=== PATIENT | female | born 1990 | race Caucasian/White ===

== ENCOUNTER 2020-09-22 05:46 | Inpatient (IN) | payer OTHER ==
[~2020-09-22] VITALS: Ht 160 cm; Wt 70.3 kg
[2020-09-22 07:35] LABS: RED BLOOD COUNT 3.92 M/UL (4.00-5.10); WHITE BLOOD COUNT 5.8 K/UL (4.5-11.0)
[2020-09-22] MEDS ORDERED: PRILOSEC OTC20 MG PO (08:20)
[2020-09-22] MEDS ORDERED: SUBOXONE 8 MG-1 EACH SL (08:20)
[2020-09-22] MEDS ORDERED: BUPRENORPHIN-N1 EACH SL (13:23)
[2020-09-22] MEDS ORDERED: IBUPROFEN800 MG PO (13:23)
[2020-09-22] MEDS ORDERED: DOCUSATE SODIU100 MG PO (13:23)
[2020-09-22] MEDS ORDERED: TYLENOL 500 MG500 MG PO (13:23)
[2020-09-23 06:03] LABS: HEMOGLOBIN 11.2 gm/dl (12.3-15.3)
== END 2020-09-24 13:00 | disposition home or self-care (01) | DRG 806 ==
LOC: OB 05:46
PROVIDERS: Obstetrics & Gynecology; ADMIT Obstetrics & Gynecology
PROC: 10E0XZZ Delivery of Products of Conception, External Approach (ICD-10-PCS; principal; 2020-09-22)
PROC: 0KQM0ZZ Repair Perineum Muscle, Open Approach (ICD-10-PCS; 2020-09-22)
PROC: 10907ZC Drainage of Amniotic Fluid, Therapeutic from Products of Conception, Via Natural or Artificial Opening (ICD-10-PCS; 2020-09-22)
PROC: 3E033VJ Introduction of Other Hormone into Peripheral Vein, Percutaneous Approach (ICD-10-PCS; 2020-09-22)
PROC: 3E0234Z Introduction of Serum, Toxoid and Vaccine into Muscle, Percutaneous Approach (ICD-10-PCS; 2020-09-22)
PROC: 10H07YZ Insertion of Other Device into Products of Conception, Via Natural or Artificial Opening (ICD-10-PCS; 2020-09-22)
DX: O99.324 Drug use complicating childbirth (principal); F11.20 Opioid dependence, uncomplicated; B19.20 Unspecified viral hepatitis C without hepatic coma; O98.42 Viral hepatitis complicating childbirth; O70.1 Second degree perineal laceration during delivery; Z37.0 Single live birth; Z3A.39 39 weeks gestation of pregnancy; Z23 Encounter for immunization
CPT/HCPCS: 51702; 80307; 81001; 82800; 85014; 85018; 85025; 85461; 86850; 86900; 86901; 87635; 90715; J2590; J2790; J2795